=== PATIENT | male | born 1985 | race Caucasian/White ===

== ENCOUNTER 2017-09-04 19:38 | Emergency (ER) | payer BC ==
--- NOTE | 2017-09-04 19:59 | UC ---
Dental HPI - HPI Summary HPI Summary: Pt presents with dental pain. He tells me that about a month ago he was hit in the left side of the cheek with a box while at work. Immediately realized that he chipped his tooth, but didn't think much of it. Did not report it and has not had any problems since. Over the last 3-4 days he has been having increasing pain in the bottom left side of his mouth. He is able to eat and drink, but with pain. He denies fever, chills, SOB, chest pain, drainage/ bleeding from the tooth or gums, or odor. He has been using Oragel and taking ibuprofen for pain with moderate relief. - History of Current Complaint Chief Complaint: UCDentalProblem Stated Complaint: TOOTH,JAW,EAR PAIN Time Seen by Provider: 09/04/17 19:59 Hx Obtained From: Patient Onset/Duration: Gradual Onset Severity: Severe Pain Intensity: 9 Pain Scale Used: 0-10 Numeric Aggravating Factor(s): Heat, Cold, Chewing Alleviating Factor(s): OTC Meds - Allergies/Home Medications Allergies/Adverse Reactions: Allergies Allergy/AdvReac Type Severity Reaction Status Date / Time No Known Allergies Allergy Verified 04/02/14 20:40 Home Medications: Home Medications Acetaminophen [Acetaminophen Extra Stren] 1,000 mg PO 09/04/17 [History] Ibuprofen [Advil] 600 mg PO 09/04/17 [History] PMH/Surg Hx/FS Hx/Imm Hx Previously Healthy: Yes - Surgical History Surgical History: None - Social History Alcohol Use: Rare Substance Use Type: None Smoking Status (MU): Never Smoked Tobacco Review of Systems Constitutional: Negative Skin: Negative Eyes: Negative ENT: Dental Pain Respiratory: Negative Cardiovascular: Negative Gastrointestinal: Negative Neurological: Negative Psychological: Negative All Other Systems Reviewed And Are Negative: Yes Physical Exam Triage Information Reviewed: Yes Appearance: Well-Nourished, Pain Distress Vital Signs: Initial Vital Signs Temp 97.5 F 09/04/17 19:41 Pulse 83 09/04/17 19:41 Resp 18 09/04/17 19:41 BP 171/106 09/04/17 19:41 Pulse Ox 100 09/04/17 19:41 Vital Signs Reviewed: Yes Eyes: Positive: Conjunctiva Clear ENT: Positive: Hearing grossly normal, Pharynx normal, TMs normal, Dental tenderness, Uvula midline. Negative: Pharyngeal erythema, Nasal congestion, Nasal drainage, TM bulging, TM dull, TM red, Tonsillar swelling, Tonsillar exudate, Sinus tenderness Dental: Positive: Percussion Tenderness @ - Tooth 18, Dental Fracture @ - Tooth 18 with obvious fracture and exposure of tooth root., Cellulitis @ - Gum of tooth 18.. Negative: Cervical Lymphadenopathy, Bleeding Neck: Positive: Supple, Nontender, No Lymphadenopathy, Other: - FROM Respiratory: Positive: Chest non-tender, Lungs clear, Normal breath sounds, No respiratory distress, No accessory muscle use Cardiovascular: Positive: RRR, No Murmur, Pulses Normal Neurological: Positive: Alert Psychological: Positive: Age Appropriate Behavior Skin: Negative: rashes Dental Complaint Course/Dx - Course Course Of Treatment: Pt has a local dentist and will call them tomorrow to schedule a follow up. Cellulitis of gum tooth 18 - Penicillin. Fractured tooth with root exposure - [place] 5 day supply. Elevated BP today - better on repeat 148/84 - Differential Dx/Diagnosis Differential Diagnosis/Dx: Dental Abscess, Dental Caries, Fractured Tooth, Gingivitis, Mandibular Trauma Provider Diagnoses: Cellulitis tooth 18. Fractured tooth 18 Discharge - Discharge Plan Condition: Stable Disposition: HOME Prescriptions: HYDROcodone/ACETAMIN 5-325 MG* [[place] 5-325 TAB*] 1 tab PO Q8H PRN #15 tab MDD 3 PRN Reason: Pain Penicillin VK TAB* [Penicillin VK 250 mg Tab*] 250 mg PO QID #40 tab Patient Education Materials: Dental Abscess (ED) Referrals: Leydi Dee NP [Nurse Practitioner] - Additional Instructions: 1) Monitor for signs and symptoms of worsening infection such as redness, increased pain, odor, or drainage. If you develop any of these symptoms - please call or go to the ED 2) Please call your dentist tomorrow and schedule a follow up as soon as possible. If you develop a fever, SOB, chest pain, new or worsening symptoms - please call your PCP or go to the ED. Your blood pressure was high at todays visit. Please see your primary provider within 4 weeks for recheck and re-evaluation.
[2017-09-04] MEDS ORDERED: HYDROcodone/ACETAMIN 5-325 MG* 1 TAB PO ONE (20:10)
[2017-09-04 20:21] VITALS: BP 148/84
== END 2017-09-04 20:30 | disposition home or self-care (01) ==
LOC: UCEAST 19:38
DX: K12.2 Cellulitis and abscess of mouth (principal); S02.5XXA Fracture of tooth (traumatic), initial encounter for closed fracture; W22.8XXA Striking against or struck by other objects, initial encounter; Y93.9 Activity, unspecified; Y92.9 Unspecified place or not applicable; Y99.0 Civilian activity done for income or pay
CPT/HCPCS: 99212; G0463

== ENCOUNTER 2017-12-02 18:54 | Emergency (ER) | payer BC ==
--- NOTE | 2017-12-02 19:41 | RAD ---
INDICATION: Left foot pain COMPARISON: None TECHNIQUE: AP, lateral, and oblique views were obtained. FINDINGS: There is no acute fracture or dislocation. There is a small plantar calcaneal spur. There is also small Achilles calcaneal spur. Soft tissues are intact. IMPRESSION: SMALL HEEL SPURS
--- NOTE | 2017-12-02 21:20 | ED ---
Lower Extremity - HPI Summary HPI Summary: 32-year-old male presents with left foot pain for the past 3 months. It has gradually increased. He admits to swelling to the area. He has history of flat feet. He hasn't seen anyone about this. He denies any injury. Denies any numbness or tingling. He is not diabetic. He works on his feet in retail. His pain is greatest over the posterior aspect of his foot with swelling to the midfoot. He has has pain when he tries to put weight on the area. Has minimal pain without weight. He denies any fevers. He denies any recent illness. He has been on ibuprofen and elevating and icing the area with minimal relief. - History of Current Complaint Chief Complaint: EDExtremityLower Stated Complaint: LT FOOT SWELLING/PAIN Time Seen by Provider: 12/02/17 20:34 Pain Intensity: 7 - Allergies/Home Medications Allergies/Adverse Reactions: Allergies Allergy/AdvReac Type Severity Reaction Status Date / Time seafood Allergy Airway Uncoded 12/02/17 20:52 Obstruction PMH/Surg Hx/FS Hx/Imm Hx Endocrine/Hematology History: Denies: Hx Diabetes, Hx Thyroid Disease Cardiovascular History: Denies: Hx Hypertension Respiratory History: Denies: Hx Asthma, Hx Chronic Obstructive Pulmonary Disease (COPD) GI History: Reports: Hx Ulcer Infectious Disease History: No Infectious Disease History: Denies: Hx Clostridium Difficile, Hx Hepatitis, Hx Human Immunodeficiency Virus (HIV), Hx of Known/Suspected MRSA, Hx Shingles, Hx Tuberculosis, Hx Known/ Suspected VRE, Hx Known/Suspected VRSA, History Other Infectious Disease, Traveled Outside the [place] in Last 30 Days - Family History Known Family History: Positive: Diabetes - Social History Alcohol Use: Occasionally Substance Use Type: Reports: None Smoking Status (MU): Former Smoker Review of Systems Negative: Fever Negative: Chest Pain Negative: Shortness Of Breath Positive: Myalgia - left foot pain All Other Systems Reviewed And Are Negative: Yes Physical Exam Triage Information Reviewed: Yes Vital Signs On Initial Exam: Initial Vitals Temp Pulse Resp BP Pulse Ox 97.7 F 78 20 159/95 97 12/02/17 18:58 12/02/17 18:58 12/02/17 18:58 12/02/17 18:58 12/02/17 18:58 Vital Signs Reviewed: Yes Appearance: Positive: Well-Appearing Skin: Positive: Warm, Dry Head/Face: Positive: Normal Head/Face Inspection Eyes: Positive: Normal, Conjunctiva Clear Respiratory/Lung Sounds: Positive: Clear to Auscultation, Breath Sounds Present Cardiovascular: Positive: Normal, RRR Musculoskeletal: Positive: Strength/ROM Intact - left foot, Edema Left - edema to midfoot, Other - tenderness greatest to hindfoot, good pulses, capillary refill<2secs, flat footed, sensation grossly intact Neurological: Positive: Normal Psychiatric: Positive: Normal Diagnostics - Vital Signs Vital Signs Temp Pulse Resp BP Pulse Ox 12/02/17 18:58 97.7 F 78 20 159/95 97 - Laboratory Lab Statement: Any lab studies that have been ordered have been reviewed, and results considered in the medical decision making process. - Radiology foot Xray Interpretation: Positive (See Comments) - IMPRESSION: SMALL HEEL SPURS Radiology Interpretation Completed By: Radiologist Lower Extremity Course/Dx - Course Course Of Treatment: 32-year-old male presents with left foot pain for the past 3 months. It has gradually increased. He admits to swelling to the area. He has history of flat feet. He hasn't seen anyone about this. He denies any injury. Denies any numbness or tingling. He is not diabetic. He works on his feet in retail. His pain is greatest over the posterior aspect of his foot with swelling to the midfoot. He has has pain when he tries to put weight on the area. Has minimal pain without weight. He denies any fevers. He denies any recent illness. He has been on ibuprofen and elevating and icing the area with minimal relief. on exam has flat feet. has edema to midfoot. with tenderness greatest of hindfoot. neurovascular intact. no calf pain. xray shows heel spurs. will give referral to podiatry. patient understand and agrees with plan. - Diagnoses Differential Diagnosis/HQI/PQRI: Positive: Fracture (Closed), Sprain, Strain Provider Diagnoses: Left foot pain Discharge - Discharge Plan Condition: Good Disposition: HOME Patient Education Materials: Swollen Joint (ED) Referrals: No Primary Care Phys,NOPCP [Primary Care Provider] - ZANDER NESBITT [Doctor of Podiatric Medicine] - OCTAVIO MONROY [Doctor of Podiatric Medicine] - Additional Instructions: Ice, elevate Take ibuprofen every 6 hours as needed for pain Follow up with podiatry Return to ED if develop any new or worsening symptoms
[2017-12-02 21:33] VITALS: BP 117/80
== END 2017-12-02 21:32 | disposition home or self-care (01) ==
LOC: ED 18:54
DX: M79.672 Pain in left foot (principal); Z87.891 Personal history of nicotine dependence; M76.892 Other specified enthesopathies of left lower limb, excluding foot
CPT/HCPCS: 99281

== ENCOUNTER 2019-03-18 10:53 | Emergency (ER) | payer BC ==
[2019-03-18 12:19] VITALS: BP 170/111
--- NOTE | 2019-03-18 15:02 | ED ---
Throat Pain/Nasal Congestion - HPI Summary HPI Summary: Patient is a 33-year-old male presenting to the ED with right lower molar pain over tooth #31. He states he was seen by a dentist 2 weeks ago and they stated they would be able to do a root canal versus extraction. Patient states he would preferred to watch and wait at that time as symptoms were only approximately 2/10 pain. He states over the past few days, the pain has been increasing and is currently at a 10/10 pain. He's been taking Motrin with no relief. He has also been taking Anbesol with no relief. He denies any swelling or drainage from the tooth. He states he has a follow-up appointment with dentist next week and is looking for pain relief for the next few days. Denies any fevers, sweats, chills. Denies any pain to neck or to the ear. - History of Current Complaint Chief Complaint: EDDentalPain Time Seen by Provider: 03/18/19 11:37 Hx Obtained From: Patient Onset/Duration: Sudden Onset Severity: Moderate Associated Signs And Symptoms: Positive: Negative - Epiglottits Risk Factors Epiglottis Risk Factors: Negative - Allergies/Home Medications Allergies/Adverse Reactions: Allergies Allergy/AdvReac Type Severity Reaction Status Date / Time seafood Allergy Airway Uncoded 03/18/19 11:14 Obstruction PMH/Surg Hx/FS Hx/Imm Hx Previously Healthy: Yes Endocrine/Hematology History: Denies: Hx Diabetes, Hx Thyroid Disease Cardiovascular History: Denies: Hx Hypertension Respiratory History: Denies: Hx Asthma, Hx Chronic Obstructive Pulmonary Disease (COPD) GI History: Reports: Hx Ulcer - Immunization History Hx Pertussis Vaccination: No Immunizations Up to Date: Yes Infectious Disease History: No Infectious Disease History: Denies: Hx Clostridium Difficile, Hx Hepatitis, Hx Human Immunodeficiency Virus (HIV), Hx of Known/Suspected MRSA, Hx Shingles, Hx Tuberculosis, Hx Known/ Suspected VRE, Hx Known/Suspected VRSA, History Other Infectious Disease, Traveled Outside the [place] in Last 30 Days - Family History Known Family History: Positive: Diabetes - Social History Occupation: Employed Full-time Lives: With Family Alcohol Use: Occasionally Hx Substance Use: No Substance Use Type: Reports: None Hx Tobacco Use: Yes Smoking Status (MU): Former Smoker Review of Systems Constitutional: Negative Negative: Fever, Chills, Fatigue, Skin Diaphoresis Positive: Dental Pain Negative: Palpitations, Chest Pain Negative: Shortness Of Breath, Cough Genitourinary: Negative Positive: no symptoms reported, see HPI Negative: Arthralgia, Myalgia Skin: Negative All Other Systems Reviewed And Are Negative: Yes Physical Exam Triage Information Reviewed: Yes Vital Signs On Initial Exam: Initial Vitals Temp Pulse Resp BP Pulse Ox 98.4 F 83 18 166/120 97 03/18/19 11:11 03/18/19 11:11 03/18/19 11:11 03/18/19 11:11 03/18/19 11:11 Vital Signs Reviewed: Yes Appearance: Positive: Well-Appearing, Well-Nourished Skin: Positive: Warm, Skin Color Reflects Adequate Perfusion Dental: Positive: Dental Fracture @ - right molar #31 Neck: Positive: Supple Respiratory/Lung Sounds: Positive: Clear to Auscultation, Breath Sounds Present Cardiovascular: Positive: RRR, Pulses are Symmetrical in both Upper and Lower Extremities Neurological: Positive: Sensory/Motor Intact, Alert, Oriented to Person Place, Time, Speech Normal Psychiatric: Positive: Affect/Mood Appropriate AVPU Assessment: Alert Diagnostics - Vital Signs Vital Signs Temp Pulse Resp BP Pulse Ox 03/18/19 12:18 98.7 F 79 18 170/111 97 03/18/19 11:11 98.4 F 83 18 166/120 97 - Laboratory Lab Statement: Any lab studies that have been ordered have been reviewed, and results considered in the medical decision making process. EENT Course/Dx - Course Course Of Treatment: Patient is evaluated for right lower molar pain over tooth #31. He states he has never had this pain before until 2 weeks ago. He was seen by his dentist and they are wanting to extract the tooth versus complete a root canal. He states he follows up with him next week. He is requesting pain control as Motrin is without relief. He does not currently or has never taken opioids in the past. He is given a short three-day supply of oxycodone. Physical exam reveals broken #31 molar tooth with no signs of infection otherwise. - Differential Diagnoses Differential Diagnoses: Other - Impacted molar, dental abscess, dental pain, dental fracture - Diagnoses Provider Diagnoses: Impacted molar Discharge - Sign-Out/Discharge Documenting (check all that apply): Patient Departure Patient Received Moderate/Deep Sedation with Procedure: No - Discharge Plan Condition: Stable Disposition: HOME Prescriptions: oxyCODONE/Acetamin 10/325(NF) [Percocet 10/325 (NF)] 1 tab PO Q8H #8 tab MDD 3 Patient Education Materials: Toothache (ED) Referrals: No Primary Care Phys,NOPCP [Primary Care Provider] - Additional Instructions: as discussed, clove, ambesol, liquor may help with sytmpoms oxycodone up to every 8 hours as needed for pain DO NOT TAKE TYLENOL WHILE TAKING THIS MEDICATION Take Ibuprofen 600mg three times daily (on opposite schedule of oxycodone) Follow up with dentist immediately - Billing Disposition and Condition Condition: STABLE Disposition: Home
== END 2019-03-18 12:18 | disposition home or self-care (01) ==
LOC: ED 10:53
DX: K01.1 Impacted teeth (principal); Z91.013 Allergy to seafood; Z87.891 Personal history of nicotine dependence
CPT/HCPCS: 99282

== ENCOUNTER 2019-07-10 04:37 | Emergency (ER) | payer BC ==
--- NOTE | 2019-07-10 05:00 | ED ---
Skin Complaint - HPI Summary HPI Summary: The patient is a 34 y/o M presenting to [facility] with a chief complaint of gradual onset erythematous rash on the ankles two nights ago. He reports that he had been at work and got home yesterday and noticed the erythema. The rash is located on the bilateral medial ankles, worse on the left, which is not painful but is pruritic. Currently, his symptoms are rated 5/10 in severity. 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 He notes that hes been dealing with edematous changes in the feet and ankles, and although hes not having typical symptoms now, he suspected that this could be related. No other PMHx. Former smoker, occasional EtOH, no substance use. Medications reviewed. Allergies noted. - History of Current Complaint Chief Complaint: EDExtremityLower Time Seen by Provider: 07/10/19 04:53 Stated Complaint: LEG PAIN NOW RASH ON LEGS PER PT Hx Obtained From: Patient Onset/Duration: Started Hours Ago, Still Present Skin Exposure Onset/Duration: Hours Ago Timing: Lasting Hours Onset Severity: Mild Current Severity: Moderate Pain Intensity: 5 Pain Scale Used: 0-10 Numeric Skin Location: Discrete, Leg - bilateral medial ankles Character: Pruritus, Redness Aggravating Symptom(s): Nothing Alleviating Symptom(s): Nothing Associated Signs & Symptoms: Rash - erythematous, pruritic, BLE - Allergy/Home Medications Allergies/Adverse Reactions: Allergies Allergy/AdvReac Type Severity Reaction Status Date / Time seafood Allergy Airway Uncoded 07/10/19 04:42 Obstruction Home Medications: Home Medications NK [No Home Medications Reported] 07/10/19 [History Confirmed 07/10/19] PMH/Surg Hx/FS Hx/Imm Hx Endocrine/Hematology History: Denies: Hx Diabetes, Hx Thyroid Disease Cardiovascular History: Denies: Hx Hypertension Respiratory History: Denies: Hx Asthma, Hx Chronic Obstructive Pulmonary Disease (COPD) GI History: Reports: Hx Ulcer Sensory History: Reports: Hx Contacts or Glasses Opthamlomology History: Reports: Hx Contacts or Glasses - Surgical History Surgical History: None Surgery Procedure, Year, and Place: none Infectious Disease History: No Infectious Disease History: Denies: Hx Clostridium Difficile, Hx Hepatitis, Hx Human Immunodeficiency Virus (HIV), Hx of Known/Suspected MRSA, Hx Shingles, Hx Tuberculosis, Hx Known/ Suspected VRE, Hx Known/Suspected VRSA, History Other Infectious Disease, Traveled Outside the [place] in Last 30 Days - Family History Known Family History: Positive: Diabetes - Social History Alcohol Use: Occasionally Hx Substance Use: No Substance Use Type: Reports: None Hx Tobacco Use: Yes Smoking Status (MU): Former Smoker Review of Systems Negative: Edema Positive: Rash - erythematous and mildly pruritic rash on bilateral medial ankles All Other Systems Reviewed And Are Negative: Yes Physical Exam - Summary Physical Exam Summary: Appearance: Well-appearing, Well-nourished, lying in bed comfortable Skin: Warm, dry, Erythematous rash which appears to be coalescing petechial lesions causing to a roughly oval 6x4 cm raised area on both medial distal legs , the areas are warm, not fluctuant, no drainage, no lymphedema streaking Eyes: sclera anicteric, no conjunctival pallor ENT: mucous membranes moist Neck: deferred Respiratory: No signs of respiratory distress Cardiovascular: Appears well perfused, pulses are nml Abdomen: deferred Musculoskeletal: Moving all 4 extremities without obvious discomfort Neurological: Awake and alert, mentation is normal, speech is fluent and appropriate Psychiatric: affect is normal, does not appear anxious or depressed Triage Information Reviewed: Yes Vital Signs On Initial Exam: Initial Vitals Temp Pulse Resp BP Pulse Ox 97.3 F 91 15 166/110 97 07/10/19 04:38 07/10/19 04:38 07/10/19 04:38 07/10/19 04:38 07/10/19 04:38 Vital Signs Reviewed: Yes Diagnostics - Vital Signs Vital Signs Temp Pulse Resp BP Pulse Ox 07/10/19 04:38 97.3 F 91 15 166/110 97 - Laboratory Result Diagrams: 07/10/19 05:35 07/10/19 05:34 Lab Statement: Any lab studies that have been ordered have been reviewed, and results considered in the medical decision making process. Course/Dx - Course Course Of Treatment: Pt is a 34 y/o M with cc of gradually worsening erythematous and mildly pruritic rash on the bilateral medial ankles beginning two nights ago. Upon physical exam, the pt exhibits an erythematous rash that appears to be coalescing petechial lesions causing roughly oval 6x4cm raised area on both medial distal legs with noted warmth but no fluctuance, drainage, or lymphedema streaking. Blood work reveals glucose of 161, AST of 46, ALT of 71 , and CRP of 15.16 but is otherwise unremarkable. We discussed results and plan for discharge including follow up with dermatology. He understands and agrees with this plan. Dx of acute rash. - Diagnoses Provider Diagnoses: Acute maculopapular rash Discharge ED - Sign-Out/Discharge Documenting (check all that apply): Patient Departure - Patient will be discharged home. Patient Received Moderate/Deep Sedation with Procedure: No - Discharge Plan Condition: Good Disposition: HOME Patient Education Materials: Acute Rash (ED) Referrals: Joel Rodriguez MD [Medical Doctor] - As Soon As Possible Additional Instructions: I am not sure what is causing your rash, so I would like you to get in to see a position classification manager. Please call the office later this morning and make an appt. If it gets a lot worse, or you develop other symptoms like fever, and are unable to see the position classification manager, come back to the ED. - Billing Disposition and Condition Condition: GOOD Disposition: Home - Attestation Statements Document Initiated by Israelibe: Yes Documenting Scribe: Gretel Titus Provider For Whom Mars is Documenting (Include Credential): Dr. Gordo Medley MD Scribe Attestation: I, Gretel Titus, scribed for Dr. Gordo Medley MD on 07/15/19 at 1241. Scribe Documentation Reviewed: Yes Provider Attestation: The documentation as recorded by the Gretel gacria accurately reflects the service I personally performed and the decisions made by me, Dr. Gordo Medley MD Status of Scribe Document: Viewed
[2019-07-10 05:57] LABS: ABS Eosinophils 0.2 10^3/ul (0-0.6); ABS Lymphocytes 1.3 10^3/ul (1.0-4.8); ABS Monocytes 0.4 10^3/ul (0-0.8); ABS Neutrophils 3.6 10^3/ul (1.5-7.7); Eosinophil % 3.5 %; Hematocrit 43 % (42-52); Hemoglobin 14.8 g/dL (14.0-18.0); Lymphocyte % 23.1 %; Mean Corpuscular HGB Conc 35 g/dL (31-36); Mean Corpuscular Hemoglobin 29 pg (27-31); Mean Corpuscular Volume 83 fL (80-94); Mean Platelet Volume 8.1 fL (7.4-10.4); Nucleated Red Blood Cells % 0.1; Platelet Count 204 10^3/uL (150-450); Red Blood Count 5.17 10^6 /uL (4.18-5.48); Red Cell Distribution Width 14 % (10-15); White Blood Count 5.6 10^3/uL (3.5-10.8)
[2019-07-10 06:15] LABS: Albumin 4.8 g/dL (3.2-5.2); Albumin/Globulin Ratio 1.9 (1-3); C Reactive Protein 15.16 mg/L (<8.01); Calcium 9.8 mg/dL (8.6-10.3); EGFR African American 127.3 (>60); EGFR Non-African American 105.2 (>60); Globulin 2.5 g/dL (2-4); Potassium 3.6 mmol/L (3.5-5.0); Total Bilirubin 0.7 mg/dL (0.2-1.0); Total Protein 7.3 g/dL (6.4-8.9)
[2019-07-10 06:45] VITALS: BP 142/84
== END 2019-07-10 06:44 | disposition home or self-care (01) ==
LOC: ED 04:37
DX: L30.9 Dermatitis, unspecified (principal); R21 Rash and other nonspecific skin eruption
CPT/HCPCS: 36415; 80053; 85025; 86140; 99282